=== PATIENT | female | born 1980 | race Caucasian/White ===

== ENCOUNTER 2017-03-13 20:17 | Inpatient (IN) | payer MEDICAID ==
[~2017-03-13] VITALS: Ht 165.1 cm; Wt 63.0 kg
[2017-03-13] MEDS ORDERED: FLUO-191 PO (20:31)
[2017-03-13] MEDS ORDERED: ALPR1TAB7 PO (20:31)
[2017-03-13] MEDS ORDERED: OLAN10TA3 PO (20:31)
[2017-03-13] MEDS ORDERED: CLON.2 PO (20:31)
[2017-03-13] MEDS ORDERED: GABA-533 PO (20:31)
[2017-03-13 20:36] LABS: GLUCOSE,POINT OF CARE 119 MG/DL (70-110)
[2017-03-13 21:38] LABS: BASOPHILS % (AUTO) 0.8 % (0.0-2.0); EOSINOPHILS % (AUTO) 1.9 % (1.0-6.0); HEMATOCRIT 31.4 % (36-46); HEMOGLOBIN 9.9 g/dL (12.0-16.0); LYMPHOCYTES # (AUTO) 1.8 K/uL (1.0-4.8); LYMPHOCYTES % (AUTO) 20.4 % (22.0-44.0); MEAN CORPUSCULAR HGB CONC 31.6 G/dL (31.0-37.0); MEAN CORPUSCULAR VOLUME 79 fL (80-100); MONOCYTES # (AUTO) 0.7 K/uL (0.1-1.0); MONOCYTES % (AUTO) 8.4 % (2.0-9.0); NEUTROPHILS # (AUTO) 6.1 K/uL (1.8-7.7); NEUTROPHILS % (AUTO) 68.5 % (40.0-70.0); PLATELET COUNT (AUTO) 449 K/uL (150-450); RED BLOOD CELL COUNT(AUTO) 3.98 MIL/uL (4.00-5.20); WHITE BLOOD COUNT (AUTO) 8.9 K/uL (4.5-11.0)
[2017-03-13 21:50] LABS: ANION GAP 11 mmol/L (8-16); CALCIUM, TOTAL 8.7 mg/dL (8.8-10.5); CARBON DIOXIDE 23 mmol/L (22-29); CHLORIDE 98 mmol/L (98-107); CREATININE 0.96 mg/dL (0.60-1.30); GLOMERULAR FILTR. RATE CALC > 60 mL/min (>60); POTASSIUM 3.8 mmol/L (3.5-5.1); SODIUM SERUM 132 mmol/L (136-145); UREA NITROGEN, BLOOD 15 mg/dL (7-18)
[2017-03-13 21:57] LABS: BILIRUBIN,TOTAL 0.7 mg/dL (0.1-1.0)
[2017-03-13 21:58] LABS: ALANINE AMINOTRANSFERASE 21 U/L (12-78); ALBUMIN 3.8 g/dL (3.4-5.0); ASPARTATE AMINOTRANSFERASE 21 U/L (15-37); TOTAL PROTEIN, SERUM 7.6 g/dL (6.4-8.2)
[2017-03-13 22:01] LABS: SALICYLATE 4.6 mg/dL (2.8-20.0)
[2017-03-13 22:10] LABS: ACETAMINOPHEN < 2 mcg/mL (10-30)
[2017-03-14] MEDS ORDERED: DiphenhydrAMINE HCL 50 MG/ML VIAL IM ONE (01:00)
[2017-03-14] MEDS ORDERED: LORazepam 2 MG/ML VIAL IM ONE (01:00)
[2017-03-14 01:30] VITALS: BP 106/64
[2017-03-14] MEDS: ZOLPIDEM TARTRATE 10 MG TABLET PO PRN (02:40)
[2017-03-14] MEDS: HALOPERIDOL 5 MG TABLET PO PRN ×2 (02:40→17:46)
[2017-03-14 03:01] LABS: APPEARANCE,URINE CLOUDY (CLEAR); GLUCOSE, URINE (UA) NEGATIVE (NEGATIVE); KETONES,URINE NEGATIVE (NEGATIVE); LEUKOCYTE ESTERASE ,URINE NEGATIVE (NEGATIVE); OCCULT BLOOD,URINE NEGATIVE (NEGATIVE); PH,URINE 5.5 (5.0-8.0); PROTEIN,URINE NEGATIVE (NEGATIVE)
[2017-03-14 03:02] LABS: ADD UA MICROSCOPIC NO
[2017-03-14 10:50] LABS: CHOL/HDL RATIO 3.2 (3.9-5.7)
[2017-03-14 17:45] VITALS: BP 115/68
[2017-03-14] MEDS: LORazepam 2 MG TABLET PO PRN (17:46)
[2017-03-15 08:30] VITALS: BP 115/69
[2017-03-15] MEDS: MULTIVITAMINS WITH IRON TABLET PO SCH (09:25)
[2017-03-15] MEDS: FLUoxetine HCL 20 MG CAPSULE PO SCH (09:27)
[2017-03-15] MEDS: OLANZapine 10 MG TABLET PO SCH (09:27)
[2017-03-15] MEDS: LORazepam 2 MG TABLET PO PRN ×3 (09:39→18:45)
[2017-03-15] MEDS: SULFAMETHOX/TRIMETH DS 800-160 MG/TABLET PO SCH ×2 (11:22→17:31)
[2017-03-15 16:15] VITALS: BP 104/75
[2017-03-16] MEDS: LORazepam 2 MG TABLET PO PRN ×3 (08:16→17:39)
[2017-03-16] MEDS: OLANZapine 10 MG TABLET PO SCH (08:16)
[2017-03-16] MEDS: MULTIVITAMINS WITH IRON TABLET PO SCH (08:16)
[2017-03-16] MEDS: SULFAMETHOX/TRIMETH DS 800-160 MG/TABLET PO SCH ×2 (08:16→16:10)
[2017-03-16] MEDS: FLUoxetine HCL 20 MG CAPSULE PO SCH (08:16)
[2017-03-16 08:47] VITALS: BP 108/66
[2017-03-16 16:17] VITALS: BP 117/79
[2017-03-17] MEDS: MULTIVITAMINS WITH IRON TABLET PO SCH (07:58)
[2017-03-17] MEDS: SULFAMETHOX/TRIMETH DS 800-160 MG/TABLET PO SCH ×2 (07:58→16:09)
[2017-03-17] MEDS: LORazepam 2 MG TABLET PO PRN ×3 (07:58→16:31)
[2017-03-17] MEDS: FLUoxetine HCL 20 MG CAPSULE PO SCH (07:59)
[2017-03-17] MEDS: OLANZapine 10 MG TABLET PO SCH ×2 (08:00→21:10)
[2017-03-17 09:11] VITALS: BP 111/60
[2017-03-17] MEDS: HALOPERIDOL 5 MG TABLET PO PRN (12:00)
[2017-03-17] MEDS: GABAPENTIN 300 MG CAPSULE PO SCH ×2 (13:42→16:09)
[2017-03-17 17:11] VITALS: BP 118/69
[2017-03-17] MEDS: CHLORHEXIDINE GLUCONATE 4% 118 ML TOPICAL LIQUID TP SCH (21:10)
[2017-03-17] MEDS: MUPIROCIN CALCIUM 2% 22 GM OINTMENT TP SCH (21:10)
[2017-03-18] MEDS: LORazepam 2 MG TABLET PO PRN ×3 (03:57→14:10)
[2017-03-18 08:00] VITALS: BP 104/75
[2017-03-18] MEDS: GABAPENTIN 300 MG CAPSULE PO SCH ×3 (08:04→16:07)
[2017-03-18] MEDS: MUPIROCIN CALCIUM 2% 22 GM OINTMENT TP SCH (08:05)
[2017-03-18] MEDS: FLUoxetine HCL 20 MG CAPSULE PO SCH (08:05)
[2017-03-18] MEDS: MULTIVITAMINS WITH IRON TABLET PO SCH (08:05)
[2017-03-18] MEDS: CHLORHEXIDINE GLUCONATE 4% 118 ML TOPICAL LIQUID TP SCH (08:05)
[2017-03-18] MEDS: SULFAMETHOX/TRIMETH DS 800-160 MG/TABLET PO SCH ×2 (08:05→16:08)
[2017-03-18] MEDS: HALOPERIDOL 5 MG TABLET PO PRN ×2 (08:07→14:10)
[2017-03-18 16:45] VITALS: BP 109/70
[2017-03-18] MEDS: OLANZapine 10 MG TABLET PO SCH (21:27)
[2017-03-19] MEDS: LORazepam 2 MG TABLET PO PRN ×4 (03:36→16:24)
[2017-03-19 04:05] VITALS: BP 102/60
[2017-03-19] MEDS: GABAPENTIN 300 MG CAPSULE PO SCH ×3 (08:07→16:02)
[2017-03-19] MEDS: SULFAMETHOX/TRIMETH DS 800-160 MG/TABLET PO SCH ×2 (08:07→16:02)
[2017-03-19] MEDS: FLUoxetine HCL 20 MG CAPSULE PO SCH (08:07)
[2017-03-19] MEDS: HALOPERIDOL 5 MG TABLET PO PRN (08:08)
[2017-03-19 08:10] VITALS: BP 115/83
[2017-03-19] MEDS: MULTIVITAMINS WITH IRON TABLET PO SCH ×2 (09:53→12:19)
[2017-03-19] MEDS: MUPIROCIN CALCIUM 2% 22 GM OINTMENT TP SCH (09:53)
[2017-03-19] MEDS: CHLORHEXIDINE GLUCONATE 4% 118 ML TOPICAL LIQUID TP SCH (09:54)
[2017-03-19 19:03] VITALS: BP 108/65
[2017-03-19] MEDS: OLANZapine 10 MG TABLET PO SCH (20:58)
[2017-03-20] MEDS: LORazepam 2 MG TABLET PO PRN ×2 (07:37→12:41)
[2017-03-20] MEDS: HALOPERIDOL 5 MG TABLET PO PRN ×3 (07:37→18:08)
[2017-03-20 08:05] VITALS: BP 153/81
[2017-03-20] MEDS: GABAPENTIN 300 MG CAPSULE PO SCH ×3 (08:49→16:26)
[2017-03-20] MEDS: FLUoxetine HCL 20 MG CAPSULE PO SCH (08:49)
[2017-03-20] MEDS: MULTIVITAMINS WITH IRON TABLET PO SCH (08:49)
[2017-03-20] MEDS: SULFAMETHOX/TRIMETH DS 800-160 MG/TABLET PO SCH (08:49)
[2017-03-20] MEDS: CHLORHEXIDINE GLUCONATE 4% 118 ML TOPICAL LIQUID TP SCH (11:26)
[2017-03-20] MEDS: MUPIROCIN CALCIUM 2% 22 GM OINTMENT TP SCH (11:26)
[2017-03-20] MEDS: LevETIRAcetam 500 MG TABLET PO SCH ×2 (12:41→16:26)
[2017-03-20] MEDS ORDERED: MAG HYDROX/AL HYDROX/SIMETH ES 30 ML SUSPENSION UDCUP PO PRN (14:00)
[2017-03-20] MEDS ORDERED: HydrOXYzine PAMOATE 50 MG CAPSULE PO PRN (14:00)
[2017-03-20] MEDS ORDERED: IBUPROFEN 600 MG TABLET PO PRN (14:00)
[2017-03-20] MEDS ORDERED: PROMETHAZINE HCL 25 MG/ML VIAL IM PRN (14:00)
[2017-03-20 18:03] VITALS: BP 127/72
[2017-03-20] MEDS: LORazepam 1 MG TABLET PO PRN (18:06)
[2017-03-20] MEDS: OLANZapine 10 MG TABLET PO SCH (20:25)
[2017-03-21] MEDS: ZOLPIDEM TARTRATE 10 MG TABLET PO PRN (02:40)
[2017-03-21] MEDS: CloNIDine HCL 0.1 MG TABLET PO PRN ×2 (02:40→14:31)
[2017-03-21 02:49] VITALS: BP 104/76
[2017-03-21] MEDS: LORazepam 1 MG TABLET PO PRN ×3 (06:41→16:19)
[2017-03-21] MEDS: LevETIRAcetam 500 MG TABLET PO SCH ×3 (08:17→16:18)
[2017-03-21] MEDS: GABAPENTIN 300 MG CAPSULE PO SCH ×3 (08:17→16:18)
[2017-03-21] MEDS: FLUoxetine HCL 20 MG CAPSULE PO SCH (08:17)
[2017-03-21] MEDS: MULTIVITAMINS WITH IRON TABLET PO SCH (08:17)
[2017-03-21 08:18] VITALS: BP 114/60
[2017-03-21] MEDS: NICOTINE 21 MG/24 HOUR PATCH TD SCH (08:26)
[2017-03-21] MEDS: CHLORHEXIDINE GLUCONATE 4% 118 ML TOPICAL LIQUID TP SCH (11:23)
[2017-03-21] MEDS: MUPIROCIN CALCIUM 2% 22 GM OINTMENT TP SCH (11:23)
[2017-03-21 14:29] VITALS: BP 108/63
[2017-03-21] MEDS: HALOPERIDOL 5 MG TABLET PO PRN (16:19)
[2017-03-21 17:00] VITALS: BP 98/48
[2017-03-21] MEDS: OLANZapine 10 MG TABLET PO SCH (21:18)
[2017-03-22 05:49] VITALS: BP 114/77
[2017-03-22] MEDS: LORazepam 1 MG TABLET PO PRN (05:49)
[2017-03-22] MEDS: HALOPERIDOL 5 MG TABLET PO PRN (06:12)
[2017-03-22] MEDS: LevETIRAcetam 500 MG TABLET PO SCH ×2 (08:24→12:11)
[2017-03-22] MEDS: GABAPENTIN 300 MG CAPSULE PO SCH ×2 (08:24→12:11)
[2017-03-22] MEDS: FLUoxetine HCL 20 MG CAPSULE PO SCH (08:25)
[2017-03-22] MEDS: NICOTINE 21 MG/24 HOUR PATCH TD SCH (08:26)
[2017-03-22] MEDS: MULTIVITAMINS WITH IRON TABLET PO SCH (08:26)
[2017-03-22] MEDS: MUPIROCIN CALCIUM 2% 22 GM OINTMENT TP SCH (08:26)
[2017-03-22] MEDS: CHLORHEXIDINE GLUCONATE 4% 118 ML TOPICAL LIQUID TP SCH (09:33)
[2017-03-22] MEDS: CloNIDine HCL 0.1 MG TABLET PO PRN (09:38)
[2017-03-22 09:51] VITALS: BP 100/62
[2017-03-22] MEDS ORDERED: GABA-531 PO (12:10)
[2017-03-22] MEDS ORDERED: OLAN10TA3 PO (12:10)
[2017-03-22] MEDS ORDERED: LEVE500T53 PO (12:15)
[2017-03-22] MEDS ORDERED: CHLO240L TP (12:15)
[2017-03-22] MEDS ORDERED: MUPI15CR TP (12:16)
[2017-03-22] MEDS ORDERED: MVITFE PO (12:16)
== END 2017-03-22 14:00 | disposition home or self-care (01) | DRG 750 ==
LOC: EMS 20:20 → EDBD 23:00 → 3EI 23:00
DX: F25.1 Schizoaffective disorder, depressive type (principal); I10 Essential (primary) hypertension; E87.1 Hypo-osmolality and hyponatremia; F11.90 Opioid use, unspecified, uncomplicated; D50.9 Iron deficiency anemia, unspecified; A49.02 Methicillin resistant Staphylococcus aureus infection, unspecified site; F15.90 Other stimulant use, unspecified, uncomplicated; T46.5X2A Poisoning by other antihypertensive drugs, intentional self-harm, initial encounter; Y92.009 Unspecified place in unspecified non-institutional (private) residence as the place of occurrence of the external cause; S61.512A Laceration without foreign body of left wrist, initial encounter; S61.511A Laceration without foreign body of right wrist, initial encounter; X78.8XXA Intentional self-harm by other sharp object, initial encounter; Z22.322 Carrier or suspected carrier of Methicillin resistant Staphylococcus aureus
CPT/HCPCS: 82962; 87070; 87081; 87205; 93005; 96372; 99285; G0480; G0481; J1200; J2060